=== PATIENT | male | born 1995 | race Caucasian/White ===

== ENCOUNTER 2023-01-17 18:05 | Emergency (ER) | payer OTHER ==
[2023-01-17 18:32] VITALS: RESP 18; TEMP 98.4; BMI 25.8
[2023-01-17] MEDS ORDERED: ACETAMINOPHEN 325 MG TABLET (FP) PO ONE (19:39)
[2023-01-17 20:15] LABS: BASO % 0.8 % (0-2.0); EOS % 1.7 % (0-4.5); HEMATOCRIT 44.5 % (35.4-49); HEMOGLOBIN 15.3 GM/dL (11.7-16.9); LYMPH % 30.3 % (8-40); MCH 29.1 pg (25.7-33.7); MCHC 34.4 g/dl (32.0-35.9); MEAN CELL VOLUME 84.4 fl (80-96); MEAN PLT VOLUME 6.2 fl (7.5-11.1); MONO % 7.4 % (3.8-10.2); NEUT % 59.8 % (42.8-82.8); PLATELET COUNT 364 10^3/uL (134-434); RBC 5.28 M/mm3 (4.00-5.60); RDW 13.1 % (11.9-15.9); WHITE BLOOD COUNT 8.2 K/mm3 (4.0-10.0)
[2023-01-17 20:34] LABS: POTASSIUM 3.7 mmol/L (3.5-5.1)
[2023-01-17 20:36] LABS: CALCIUM 8.9 mg/dL (8.5-10.1)
[2023-01-17 20:37] LABS: ALBUMIN 4.7 g/dl (3.4-5.0); BLOOD UREA NITROGEN 12.9 mg/dL (7-18)
[2023-01-17 20:40] LABS: CREATININE 0.9 mg/dL (0.55-1.3)
[2023-01-17 20:41] LABS: BILIRUBIN,TOTAL 1.1 mg/dL (0.2-1)
[2023-01-17 20:42] LABS: TOT PROT 7.6 g/dl (6.4-8.2)
[2023-01-17 22:38] VITALS: BP 126/70; PULSE 68
== END 2023-01-17 22:38 | disposition home or self-care (01) ==
LOC: JER 18:05
DX: R07.89 Other chest pain (principal); R06.02 Shortness of breath; R05.9 Cough, unspecified; R00.2 Palpitations; Z20.822 Contact with and (suspected) exposure to COVID-19
CPT/HCPCS: 0241U-QW; 36415; 71046-TC-FY; 80053; 85025; 85379; 93005; 93010; 99285-25